=== PATIENT | female | born 1930 | race Caucasian/White ===

== ENCOUNTER 2016-10-11 15:41 | Emergency (ER) | payer MEDICARE, OTHER ==
[~2016-10-11 15:41] MED LIST: ACETAMINOPHEN650 MG PR; AGGRENOX CAP1 BOTTLE; ALEVE220 M2 PO; ALEVE220 M4 PO; ALEVE220 MG; ALEVE220 MG PO; ASPIRIN EC325 M1 PO; ASPIRIN ENTERI325 MG; ASPIRIN325 M3 PO; BACTRIM DS TAB1 EAC2 PO; BAYER ASPIRIN325 M1 PO; BAYER ASPIRIN325 MG PO; BENTYL10 MG PO; BISCOLAX10 MG PR; CALCI-CHEW500 MG PO; CARAFATE1 GM/10 M1 PO; COLACE100 M1 PO; COMPAZINE10 M PO; ECOTRIN500 MG; ERY-TAB333 MG; HYOSCYAMINE0.125 MG; MILK OF MAGNESIA PO; MULTIVITAMIN W1 EAC1 PO; MULTIVITAMIN1 CAP; MULTIVITAMIN1 TAB PO; MULTIVITAMINS1 EAC6 PO; NAPROXEN250 MG; NEXIUM40 MG; NORCO 5/3251 TA1 PO; NORCO 5/3251 TA2 PO; NORVASC5 M1 PO; NORVASC5 M2 PO; NORVASC5 MG PO; OMEPRAZOLE20 M4 PO; PANTOPRAZOLE SO40 M3 PO; PRILOSEC20 M1 PO; PRILOSEC20 MG PO; PROTONIX40 M2 PO; RESTORIL15 MG PO; SENNA PLUS TAB1 EAC1 PO; SENNA S TABLET1 EACH PO; SULAR; SULAR PO; TEMAZEPAM15 MG; TYLENOL EXTRA500 M1 PO; TYLENOL325 M2 PO; VICODIN 5/500 T1 TAB; VICODIN 5/500 T1 TAB PO; ZOFRAN ODT4 MG/UDTAB PO; ZOFRAN4 MG PO
[2016-10-11] MEDS ORDERED: FEOSOL325 M1 PO (15:47)
[2016-10-11] MEDS ORDERED: OMEPRAZOLE20 M3 PO (15:48)
[2016-10-11 16:34] LABS: INR 1.1 INR (0.9-1.1); PROTHROMBIN TIME 12.2 SECONDS (9.0-13.6)
[2016-10-11 16:42] LABS: ANION GAP 12 mmol/L (0-20); BASO % 0.5 % (0-2); BLOOD UREA NITROGEN 15 mg/dl (6-24); CALCIUM 8.2 mg/dl (8.5-10.5); CARBON DIOXIDE-VENOUS 24 mmol/L (22-32); CHLORIDE 107 mmol/l (96-110); CREATININE 0.81 mg/dl (0.50-1.10); EOS % 0.9 % (0-7); GLUCOSE 125 mg/dL (70-110); HCT-HEMATOCRIT 24.9 % (34.0-49.0); HGB-HEMOGLOBIN 7.3 gm/dl (12.0-15.5); IMMATURE GRANULOCYTES ABSOLUTE 0.01 tho/cmm (0-0.03); IMMATURE GRANULOCYTES PERCENT 0.2 % (0-0.3); LYMPH % 20.9 % (20-45); LYMPH ABSOLUTE COUNT 0.9 tho/cmm (0.8-4.5); MCH (MEAN CORPUSCULAR HGB) 20.1 pg (28.0-32.0); MCHC MEAN CORPUSCULAR HGB CONC 29.3 % (32.0-36.0); MCV (MEAN CELL VOLUME) 68.6 fl (82.0-96.0); MEAN PLATELET VOLUME 9.4 cmc (9.4-12.4); MONO % 9.7 % (0-12); MONOCYTE ABSOLUTE COUNT 0.4 tho/cmm (0.0-1.2); NEUTROPHIL ABSOLUTE COUNT 2.9 tho/cmm (1.6-8.0); NEUTROPHIL-AUTOMATED 2.9 tho/cmm (1.6-8.0); NEUTROPHILS % 67.8 % (40-80); POTASSIUM 3.8 mmol/L (3.7-5.1); RED BLOOD COUNT 3.63 mil/cmm (4.00-5.20); RED CELL DISTRIBUTION WIDTH 21.5 % (12.4-16.4); SODIUM 139 mmol/L (135-145); WHITE BLOOD COUNT 4.2 tho/cmm (4.0-10.0); eGFR VALUE FOR BLACK 76 mL/Min
[2016-10-11 17:32] LABS: URINE BILIRUBIN NEGATIVE (NEG); URINE BLOOD NEGATIVE (NEG); URINE GLUCOSE (UA) NEGATIVE (NEG); URINE KETONE NEGATIVE (NEG); URINE LEUKOCYTE ESTERASE POSITIVE (NEG); URINE NITRITE NEGATIVE (NEG); URINE PH 6.5 (5.0-8.0); URINE PROTEIN NEGATIVE (NEG)
[2016-10-11 17:44] LABS: URINE APPEARANCE CLEAR; URINE COLOR YELLOW; URINE EPITHELIAL CELLS 0 /[HPF] (0-10)
[2016-10-11 17:51] LABS: IRON 13 ug/dl (37-170); IRON BINDING CAPACITY 427 ug/dl (250-450)
[2016-11-18] MEDS ORDERED: PROTONIX40 M2 PO (11:30)
[2016-11-18] MEDS ORDERED: CARAFATE1 G2 PO (11:31)
[2017-01-31] MEDS ORDERED: ASPIRIN81 M1 PO (11:13)
== END 2016-10-11 18:10 ==
LOC: EDMED 15:41
PROVIDERS: Emergency Medicine
DX: D64.9 Anemia, unspecified (principal); R20.2 Paresthesia of skin; R53.1 Weakness; R19.7 Diarrhea, unspecified; I10 Essential (primary) hypertension; Z86.711 Personal history of pulmonary embolism; Z79.899 Other long term (current) drug therapy
CPT/HCPCS: J7030

== ENCOUNTER 2016-10-15 10:47 | Emergency (ER) | payer MEDICARE, OTHER ==
[~2016-10-15 10:47] MED LIST changes: +FEOSOL325 M1 PO; +OMEPRAZOLE20 M3 PO
[2016-10-15 12:17] LABS: BASO % 0.2 % (0-2); EOS % 0.4 % (0-7); HCT-HEMATOCRIT 29.1 % (34.0-49.0); HGB-HEMOGLOBIN 8.6 gm/dl (12.0-15.5); IMMATURE GRANULOCYTES ABSOLUTE 0.01 tho/cmm (0-0.03); IMMATURE GRANULOCYTES PERCENT 0.2 % (0-0.3); LYMPH % 17.7 % (20-45); MCH (MEAN CORPUSCULAR HGB) 20.5 pg (28.0-32.0); MCHC MEAN CORPUSCULAR HGB CONC 29.6 % (32.0-36.0); MCV (MEAN CELL VOLUME) 69.5 fl (82.0-96.0); MONO % 6.1 % (0-12); MONOCYTE ABSOLUTE COUNT 0.4 tho/cmm (0.0-1.2); NEUTROPHIL ABSOLUTE COUNT 4.3 tho/cmm (1.6-8.0); NEUTROPHIL-AUTOMATED 4.3 tho/cmm (1.6-8.0); NEUTROPHILS % 75.4 % (40-80); PLATELET COUNT 258 tho/cmm (150-450); RED BLOOD COUNT 4.19 mil/cmm (4.00-5.20); RED CELL DISTRIBUTION WIDTH 22.7 % (12.4-16.4); WHITE BLOOD COUNT 5.7 tho/cmm (4.0-10.0)
[2016-10-15 12:31] LABS: ALKALINE PHOSPHATASE 74 U/L (33-138); ALT/SGPT 19 U/L (12-78); ANION GAP 13 mmol/L (0-20); AST/SGOT 20 U/L (10-40); BILIRUBIN,TOTAL 0.3 mg/dl (0-1.5); BLOOD UREA NITROGEN 14 mg/dl (6-24); CALCIUM 8.6 mg/dl (8.5-10.5); CARBON DIOXIDE-VENOUS 26 mmol/L (22-32); CHLORIDE 105 mmol/l (96-110); CREATININE 0.66 mg/dl (0.50-1.10); GLUCOSE 102 mg/dL (70-110); POTASSIUM 3.8 mmol/L (3.7-5.1); SODIUM 140 mmol/L (135-145); eGFR VALUE FOR BLACK >90 mL/Min
[2016-10-15 14:30] LABS: URINE BILIRUBIN NEGATIVE (NEG); URINE BLOOD NEGATIVE (NEG); URINE GLUCOSE (UA) NEGATIVE (NEG); URINE KETONE NEGATIVE (NEG); URINE LEUKOCYTE ESTERASE NEGATIVE (NEG); URINE NITRITE NEGATIVE (NEG); URINE PROTEIN NEGATIVE (NEG)
[2016-10-15 14:31] LABS: URINE APPEARANCE CLEAR; URINE COLOR YELLOW
[2016-11-18] MEDS ORDERED: PROTONIX40 M2 PO (11:30)
[2016-11-18] MEDS ORDERED: CARAFATE1 G2 PO (11:31)
[2017-01-31] MEDS ORDERED: ASPIRIN81 M1 PO (11:13)
== END 2016-10-15 16:52 ==
LOC: EDMED 10:47
PROVIDERS: Nurse Practitioner Family
DX: J02.9 Acute pharyngitis, unspecified (principal); R52 Pain, unspecified; R10.9 Unspecified abdominal pain; R35.0 Frequency of micturition; R51 Headache; I10 Essential (primary) hypertension
CPT/HCPCS: G8978-GP-CJ; G8979-GP-CJ; G8980-GP-CJ

== ENCOUNTER 2016-10-20 16:06 | Emergency (ER) | payer MEDICARE, OTHER ==
[2016-10-20 16:57] LABS: BASO % 0.2 % (0-2); EOS % 0.6 % (0-7); HCT-HEMATOCRIT 27.4 % (34.0-49.0); HGB-HEMOGLOBIN 7.9 gm/dl (12.0-15.5); IMMATURE GRANULOCYTES ABSOLUTE 0.01 tho/cmm (0-0.03); IMMATURE GRANULOCYTES PERCENT 0.2 % (0-0.3); LYMPH % 21.8 % (20-45); MCHC MEAN CORPUSCULAR HGB CONC 28.8 % (32.0-36.0); MCV (MEAN CELL VOLUME) 69.4 fl (82.0-96.0); MONO % 7.1 % (0-12); MONOCYTE ABSOLUTE COUNT 0.3 tho/cmm (0.0-1.2); NEUTROPHIL ABSOLUTE COUNT 3.2 tho/cmm (1.6-8.0); NEUTROPHIL-AUTOMATED 3.2 tho/cmm (1.6-8.0); NEUTROPHILS % 70.1 % (40-80); PLATELET COUNT 223 tho/cmm (150-450); RED BLOOD COUNT 3.95 mil/cmm (4.00-5.20); RED CELL DISTRIBUTION WIDTH 21.4 % (12.4-16.4); WHITE BLOOD COUNT 4.6 tho/cmm (4.0-10.0)
[2016-10-20 17:03] LABS: PROTHROMBIN TIME 12.1 SECONDS (9.0-13.6)
[2016-10-20 17:16] LABS: ALBUMIN 3.7 g/dl (3.5-5.0); ALCOHOL (ETOH) <10 mg/dl (<10); ALKALINE PHOSPHATASE 72 U/L (33-138); ALT/SGPT 20 U/L (12-78); ANION GAP 10 mmol/L (0-20); AST/SGOT 22 U/L (10-40); BILIRUBIN,TOTAL 0.2 mg/dl (0-1.5); BLOOD UREA NITROGEN 17 mg/dl (6-24); CALCIUM 8.4 mg/dl (8.5-10.5); CARBON DIOXIDE-VENOUS 26 mmol/L (22-32); CHLORIDE 108 mmol/l (96-110); GLUCOSE 107 mg/dL (70-110); POTASSIUM 3.9 mmol/L (3.7-5.1); SODIUM 140 mmol/L (135-145); eGFR VALUE FOR BLACK >90 mL/Min
[2016-10-20 17:20] LABS: TSH-THYROID STIMULATING HORM. 1.11 uIU/ml (0.40-3.80)
[2016-11-18] MEDS ORDERED: PROTONIX40 M2 PO (11:30)
[2016-11-18] MEDS ORDERED: CARAFATE1 G2 PO (11:31)
[2017-01-31] MEDS ORDERED: ASPIRIN81 M1 PO (11:13)
== END 2016-10-20 19:12 ==
LOC: EDMED 16:06
PROVIDERS: Emergency Medicine
DX: R20.0 Anesthesia of skin (principal); I10 Essential (primary) hypertension; Z86.73 Personal history of transient ischemic attack (TIA), and cerebral infarction without residual deficits; K21.9 Gastro-esophageal reflux disease without esophagitis; Z90.710 Acquired absence of both cervix and uterus; Z90.49 Acquired absence of other specified parts of digestive tract; Z90.89 Acquired absence of other organs; Z79.899 Other long term (current) drug therapy
CPT/HCPCS: G0480

== ENCOUNTER 2016-11-10 07:29 | Inpatient (IN) | payer MEDICARE, OTHER ==
[2016-11-10 08:10] LABS: BASO % 0.1 % (0-2); HCT-HEMATOCRIT 27.5 % (34.0-49.0); IMMATURE GRANULOCYTES ABSOLUTE 0.02 tho/cmm (0-0.03); IMMATURE GRANULOCYTES PERCENT 0.3 % (0-0.3); LYMPH % 7.3 % (20-45); LYMPH ABSOLUTE COUNT 0.6 tho/cmm (0.8-4.5); MCH (MEAN CORPUSCULAR HGB) 20.9 pg (28.0-32.0); MCHC MEAN CORPUSCULAR HGB CONC 29.1 % (32.0-36.0); MEAN PLATELET VOLUME 9.1 cmc (9.4-12.4); MONO % 3.9 % (0-12); MONOCYTE ABSOLUTE COUNT 0.3 tho/cmm (0.0-1.2); NEUTROPHILS % 88.4 % (40-80); PLATELET COUNT 240 tho/cmm (150-450); RED BLOOD COUNT 3.82 mil/cmm (4.00-5.20); WHITE BLOOD COUNT 7.9 tho/cmm (4.0-10.0)
[2016-11-10 08:12] LABS: RED CELL DISTRIBUTION WIDTH 25.6 % (12.4-16.4)
[2016-11-10 08:15] LABS: INR 1.1 INR (0.9-1.1); PROTHROMBIN TIME 12.7 SECONDS (9.0-13.6)
[2016-11-10 08:23] LABS: ALBUMIN 3.5 g/dl (3.5-5.0); ALKALINE PHOSPHATASE 67 U/L (33-138); ALT/SGPT 22 U/L (12-78); ANION GAP 14 mmol/L (0-20); AST/SGOT 17 U/L (10-40); BILIRUBIN,TOTAL 0.4 mg/dl (0-1.5); BLOOD UREA NITROGEN 41 mg/dl (6-24); CALCIUM 8.2 mg/dl (8.5-10.5); CARBON DIOXIDE-VENOUS 24 mmol/L (22-32); CHLORIDE 107 mmol/l (96-110); GLUCOSE 155 mg/dL (70-110); LIPASE 203 U/L (73-393); POTASSIUM 3.8 mmol/L (3.7-5.1); SODIUM 141 mmol/L (135-145); eGFR VALUE FOR BLACK >90 mL/Min
[2016-11-10] MEDS ORDERED: ASPIRIN EC81 MG PO (09:00)
[2016-11-10 09:42] LABS: URINE APPEARANCE HAZY; URINE BILIRUBIN NEGATIVE (NEG); URINE BLOOD SMALL (NEG); URINE COLOR PALE YELLOW; URINE GLUCOSE (UA) NEGATIVE (NEG); URINE KETONE NEGATIVE (NEG); URINE LEUKOCYTE ESTERASE POSITIVE (NEG); URINE NITRITE NEGATIVE (NEG); URINE PROTEIN SMALL (NEG)
[2016-11-10 09:51] LABS: URINE WBC 100-150 /[HPF] (0-5)
[2016-11-10 09:53] LABS: URINE MUCUS 1+
[2016-11-10 12:33] LABS: HGB-HEMOGLOBIN 6.8 gm/dl (12.0-15.5); LYMPH ABSOLUTE COUNT 0.6 tho/cmm (0.8-4.5); MCH (MEAN CORPUSCULAR HGB) 21.2 pg (28.0-32.0); MEAN PLATELET VOLUME 9.1 cmc (9.4-12.4); MONO % 3.1 % (0-12); MONOCYTE ABSOLUTE COUNT 0.2 tho/cmm (0.0-1.2); NEUTROPHIL ABSOLUTE COUNT 4.5 tho/cmm (1.6-8.0); NEUTROPHIL-AUTOMATED 4.5 tho/cmm (1.6-8.0); NEUTROPHILS % 84.9 % (40-80); PLATELET COUNT 212 tho/cmm (150-450); RED BLOOD COUNT 3.21 mil/cmm (4.00-5.20); WHITE BLOOD COUNT 5.2 tho/cmm (4.0-10.0)
[2016-11-10 12:34] LABS: HCT-HEMATOCRIT 23.1 % (34.0-49.0); MCHC MEAN CORPUSCULAR HGB CONC 29.4 % (32.0-36.0); RED CELL DISTRIBUTION WIDTH 25.5 % (12.4-16.4)
[2016-11-10 21:11] LABS: RED CELL DISTRIBUTION WIDTH 24.5 % (12.4-16.4)
[2016-11-10 21:12] LABS: HCT-HEMATOCRIT 29.5 % (34.0-49.0); HGB-HEMOGLOBIN 9.1 gm/dl (12.0-15.5)
[2016-11-11 05:38] LABS: HCT-HEMATOCRIT 29.5 % (34.0-49.0); HGB-HEMOGLOBIN 9.2 gm/dl (12.0-15.5); MCV (MEAN CELL VOLUME) 75.4 fl (82.0-96.0); RED CELL DISTRIBUTION WIDTH 24.6 % (12.4-16.4)
[2016-11-11 12:52] LABS: HCT-HEMATOCRIT 29.6 % (34.0-49.0); HGB-HEMOGLOBIN 9.1 gm/dl (12.0-15.5); MCV (MEAN CELL VOLUME) 76.5 fl (82.0-96.0); RED CELL DISTRIBUTION WIDTH 24.6 % (12.4-16.4)
[2016-11-11 21:08] LABS: HCT-HEMATOCRIT 33.9 % (34.0-49.0); HGB-HEMOGLOBIN 10.4 gm/dl (12.0-15.5); MCV (MEAN CELL VOLUME) 75.7 fl (82.0-96.0); RED CELL DISTRIBUTION WIDTH 24.5 % (12.4-16.4)
[2016-11-12 06:05] LABS: HCT-HEMATOCRIT 32.6 % (34.0-49.0); HGB-HEMOGLOBIN 10.1 gm/dl (12.0-15.5); MCV (MEAN CELL VOLUME) 74.9 fl (82.0-96.0); RED CELL DISTRIBUTION WIDTH 24.8 % (12.4-16.4)
[2016-11-12] MEDS ORDERED: PROTONIX40 M2 PO (13:29)
[2016-11-12 13:40] LABS: HCT-HEMATOCRIT 32.6 % (34.0-49.0); HGB-HEMOGLOBIN 10.2 gm/dl (12.0-15.5); MCV (MEAN CELL VOLUME) 75.5 fl (82.0-96.0)
[2016-11-12 13:46] LABS: RED CELL DISTRIBUTION WIDTH 25.2 % (12.4-16.4)
[2016-11-18] MEDS ORDERED: PROTONIX40 M2 PO (11:30)
[2016-11-18] MEDS ORDERED: CARAFATE1 G2 PO (11:31)
[2017-01-31] MEDS ORDERED: ASPIRIN81 M1 PO (11:13)
== END 2016-11-12 16:15 | DRG 378 ==
LOC: EDMED 07:29 → EMR2 10:11 → 5WF 11:16
PROVIDERS: Emergency Medicine; Family Medicine; Internal Medicine Gastroenterology; ADMIT Family Medicine
PROC: 0DJ08ZZ Inspection of Upper Intestinal Tract, Via Natural or Artificial Opening Endoscopic (ICD-10-PCS; principal; 2016-11-11)
PROC: 05HC33Z Insertion of Infusion Device into Left Basilic Vein, Percutaneous Approach (ICD-10-PCS; principal; 2016-11-11)
PROC: B54NZZA Ultrasonography of Left Upper Extremity Veins, Guidance (ICD-10-PCS; principal; 2016-11-11)
PROC: 0DJD8ZZ Inspection of Lower Intestinal Tract, Via Natural or Artificial Opening Endoscopic (ICD-10-PCS; 2016-11-12)
DX: K92.0 Hematemesis (principal); D62 Acute posthemorrhagic anemia; K92.1 Melena; I10 Essential (primary) hypertension; K21.9 Gastro-esophageal reflux disease without esophagitis; M19.90 Unspecified osteoarthritis, unspecified site; Z86.73 Personal history of transient ischemic attack (TIA), and cerebral infarction without residual deficits
CPT/HCPCS: C1751; C9113; G0500; J2250; J2405; J3010; J7030; P9016

== ENCOUNTER 2016-11-27 08:04 | Emergency (ER) | payer MEDICARE, OTHER ==
[~2016-11-27 08:04] MED LIST changes: +ASPIRIN EC81 MG PO; +CARAFATE1 G2 PO
[2016-11-27 08:41] LABS: BASO % 0.4 % (0-2); EOS % 1.1 % (0-7); EOSINOPHIL ABSOLUTE COUNT 0.1 tho/cmm (0.0-0.7); HCT-HEMATOCRIT 33.7 % (34.0-49.0); HGB-HEMOGLOBIN 10.4 gm/dl (12.0-15.5); LYMPH % 16.6 % (20-45); LYMPH ABSOLUTE COUNT 0.8 tho/cmm (0.8-4.5); MCH (MEAN CORPUSCULAR HGB) 24.9 pg (28.0-32.0); MCHC MEAN CORPUSCULAR HGB CONC 30.9 % (32.0-36.0); MCV (MEAN CELL VOLUME) 80.8 fl (82.0-96.0); MEAN PLATELET VOLUME 9.9 cmc (9.4-12.4); MONOCYTE ABSOLUTE COUNT 0.3 tho/cmm (0.0-1.2); NEUTROPHIL ABSOLUTE COUNT 3.4 tho/cmm (1.6-8.0); NEUTROPHIL-AUTOMATED 3.4 tho/cmm (1.6-8.0); NEUTROPHILS % 74.9 % (40-80); PLATELET COUNT 207 tho/cmm (150-450); RED BLOOD COUNT 4.17 mil/cmm (4.00-5.20); WHITE BLOOD COUNT 4.6 tho/cmm (4.0-10.0)
[2016-11-27] MEDS ORDERED: OMEPRAZOLE20 M3 PO (08:43)
[2016-11-27 08:45] LABS: RED CELL DISTRIBUTION WIDTH 25.7 % (12.4-16.4)
[2016-11-27 08:53] LABS: ALB/GLOB RATIO 1.1 (0.8-2.0); ALBUMIN 3.5 g/dl (3.5-5.0); ALKALINE PHOSPHATASE 65 U/L (33-138); ALT/SGPT 18 U/L (12-78); ANION GAP 12 mmol/L (0-20); AST/SGOT 18 U/L (10-40); BILIRUBIN,TOTAL 0.6 mg/dl (0-1.5); BLOOD UREA NITROGEN 10 mg/dl (6-24); CALCIUM 8.4 mg/dl (8.5-10.5); CARBON DIOXIDE-VENOUS 26 mmol/L (22-32); CHLORIDE 108 mmol/l (96-110); CREATININE 0.61 mg/dl (0.50-1.10); GLUCOSE 115 mg/dL (70-110); LIPASE 126 U/L (73-393); POTASSIUM 3.4 mmol/L (3.7-5.1); SODIUM 143 mmol/L (135-145); eGFR VALUE FOR BLACK >90 mL/Min
[2016-11-28] MEDS ORDERED: CARAFATE1 GM/10 M1 PO (17:44)
[2017-01-31] MEDS ORDERED: ASPIRIN81 M1 PO (11:13)
== END 2016-11-27 11:28 ==
LOC: EDMED 08:04
PROVIDERS: Emergency Medicine
DX: K21.0 Gastro-esophageal reflux disease with esophagitis (principal); I10 Essential (primary) hypertension
CPT/HCPCS: J2405

== ENCOUNTER 2016-11-28 14:41 | Observation (INO) | payer MEDICARE, OTHER ==
[2016-11-28 15:14] LABS: BASO % 0.1 % (0-2); EOS % 0.3 % (0-7); HCT-HEMATOCRIT 35.3 % (34.0-49.0); HGB-HEMOGLOBIN 10.7 gm/dl (12.0-15.5); IMMATURE GRANULOCYTES ABSOLUTE 0.02 tho/cmm (0-0.03); IMMATURE GRANULOCYTES PERCENT 0.3 % (0-0.3); LYMPH % 13.5 % (20-45); LYMPH ABSOLUTE COUNT 1.1 tho/cmm (0.8-4.5); MCH (MEAN CORPUSCULAR HGB) 24.4 pg (28.0-32.0); MCHC MEAN CORPUSCULAR HGB CONC 30.3 % (32.0-36.0); MCV (MEAN CELL VOLUME) 80.6 fl (82.0-96.0); MEAN PLATELET VOLUME 9.5 cmc (9.4-12.4); MONO % 6.3 % (0-12); MONOCYTE ABSOLUTE COUNT 0.5 tho/cmm (0.0-1.2); NEUTROPHIL ABSOLUTE COUNT 6.3 tho/cmm (1.6-8.0); NEUTROPHIL-AUTOMATED 6.3 tho/cmm (1.6-8.0); NEUTROPHILS % 79.5 % (40-80); PLATELET COUNT 221 tho/cmm (150-450); RED BLOOD COUNT 4.38 mil/cmm (4.00-5.20)
[2016-11-28 15:15] LABS: RED CELL DISTRIBUTION WIDTH 25.5 % (12.4-16.4)
[2016-11-28 15:31] LABS: ALB/GLOB RATIO 0.9 (0.8-2.0); ALBUMIN 3.4 g/dl (3.5-5.0); ALKALINE PHOSPHATASE 68 U/L (33-138); ALT/SGPT 22 U/L (12-78); ANION GAP 13 mmol/L (0-20); AST/SGOT 37 U/L (10-40); BILIRUBIN,TOTAL 0.4 mg/dl (0-1.5); BLOOD UREA NITROGEN 16 mg/dl (6-24); CALCIUM 8.3 mg/dl (8.5-10.5); CARBON DIOXIDE-VENOUS 26 mmol/L (22-32); CHLORIDE 101 mmol/l (96-110); CREATININE 0.89 mg/dl (0.50-1.10); GLUCOSE 157 mg/dL (70-110); LIPASE 160 U/L (73-393); POTASSIUM 3.9 mmol/L (3.7-5.1); SODIUM 136 mmol/L (135-145); eGFR VALUE FOR BLACK 68 mL/Min
[2016-11-28] MEDS ORDERED: CARAFATE1 GM/10 M1 PO (17:44)
[2017-01-31] MEDS ORDERED: ASPIRIN81 M1 PO (11:13)
== END 2016-11-29 14:30 ==
LOC: EDMED 14:41 → EMR2 20:16 → CAR1 21:08
PROVIDERS: Emergency Medicine; ADMIT Internal Medicine
DX: R07.9 Chest pain, unspecified (principal); K92.1 Melena; I10 Essential (primary) hypertension; M19.90 Unspecified osteoarthritis, unspecified site; H40.9 Unspecified glaucoma; H35.30 Unspecified macular degeneration; F41.9 Anxiety disorder, unspecified; Z79.899 Other long term (current) drug therapy; Z88.1 Allergy status to other antibiotic agents; Z88.5 Allergy status to narcotic agent; Z88.8 Allergy status to other drugs, medicaments and biological substances; Z90.49 Acquired absence of other specified parts of digestive tract; Z90.710 Acquired absence of both cervix and uterus; Z98.890 Other specified postprocedural states
CPT/HCPCS: C9113; G0378; G8978-GP-CK; G8979-GP-CJ; G8980-GP-CJ; J2405; J7030

== ENCOUNTER 2016-12-20 16:34 | Observation (INO) | payer MEDICARE, OTHER ==
[2016-12-20] MEDS ORDERED: PEPCID20 M1 PO (16:41)
[2016-12-20] MEDS ORDERED: CARAFATE1 GM/10 M1 PO (16:42)
[2016-12-20 17:22] LABS: BASO % 0.2 % (0-2); EOS % 0.6 % (0-7); HGB-HEMOGLOBIN 10.6 gm/dl (12.0-15.5); LYMPH % 21.7 % (20-45); LYMPH ABSOLUTE COUNT 1.1 tho/cmm (0.8-4.5); MCH (MEAN CORPUSCULAR HGB) 25.3 pg (28.0-32.0); MCHC MEAN CORPUSCULAR HGB CONC 31.2 % (32.0-36.0); MCV (MEAN CELL VOLUME) 81.1 fl (82.0-96.0); MEAN PLATELET VOLUME 9.1 cmc (9.4-12.4); MONO % 9.5 % (0-12); MONOCYTE ABSOLUTE COUNT 0.5 tho/cmm (0.0-1.2); NEUTROPHIL ABSOLUTE COUNT 3.4 tho/cmm (1.6-8.0); NEUTROPHIL-AUTOMATED 3.4 tho/cmm (1.6-8.0); PLATELET COUNT 219 tho/cmm (150-450); RED BLOOD COUNT 4.19 mil/cmm (4.00-5.20); RED CELL DISTRIBUTION WIDTH 21.6 % (12.4-16.4); WHITE BLOOD COUNT 5.1 tho/cmm (4.0-10.0)
[2016-12-20 17:36] LABS: ALB/GLOB RATIO 0.8 (0.8-2.0); ALBUMIN 2.9 g/dl (3.5-5.0); ALKALINE PHOSPHATASE 71 U/L (33-138); ALT/SGPT 23 U/L (12-78); ANION GAP 14 mmol/L (0-20); AST/SGOT 22 U/L (10-40); BILIRUBIN,TOTAL 0.3 mg/dl (0-1.5); BLOOD UREA NITROGEN 18 mg/dl (6-24); CARBON DIOXIDE-VENOUS 25 mmol/L (22-32); CHLORIDE 105 mmol/l (96-110); CREATININE 0.61 mg/dl (0.50-1.10); GLUCOSE 118 mg/dL (70-110); LIPASE 194 U/L (73-393); POTASSIUM 4.4 mmol/L (3.7-5.1); SODIUM 140 mmol/L (135-145); eGFR VALUE FOR BLACK >90 mL/Min
[2016-12-20 20:05] LABS: URINE APPEARANCE HAZY; URINE BILIRUBIN NEGATIVE (NEG); URINE BLOOD SMALL (NEG); URINE COLOR YELLOW; URINE GLUCOSE (UA) NEGATIVE (NEG); URINE KETONE NEGATIVE (NEG); URINE LEUKOCYTE ESTERASE POSITIVE (NEG); URINE NITRITE NEGATIVE (NEG); URINE PROTEIN NEGATIVE (NEG)
[2016-12-20 20:18] LABS: URINE BACTERIA 1+; URINE WBC 20-30 /[HPF] (0-5)
[2016-12-21] MEDS ORDERED: PROTONIX40 M2 PO (13:19)
[2016-12-21] MEDS ORDERED: CARAFATE1 GM/10 M1 PO (13:20)
[2017-01-31] MEDS ORDERED: ASPIRIN81 M1 PO (11:13)
== END 2016-12-21 14:43 ==
LOC: EDMED 16:34 → EMR2 21:58 → CAR1 23:25
PROVIDERS: Emergency Medicine; ADMIT Hospitalist
PROC: 05HA33Z Insertion of Infusion Device into Left Brachial Vein, Percutaneous Approach (ICD-10-PCS; principal; 2016-12-20)
DX: K20.9 Esophagitis, unspecified (principal); R07.9 Chest pain, unspecified; R82.71 Bacteriuria; Z91.14 Patient's other noncompliance with medication regimen; M19.90 Unspecified osteoarthritis, unspecified site; H35.30 Unspecified macular degeneration; I10 Essential (primary) hypertension; D64.9 Anemia, unspecified; N39.0 Urinary tract infection, site not specified; Z79.899 Other long term (current) drug therapy; Z88.1 Allergy status to other antibiotic agents; Z88.5 Allergy status to narcotic agent; Z88.8 Allergy status to other drugs, medicaments and biological substances; Z86.73 Personal history of transient ischemic attack (TIA), and cerebral infarction without residual deficits; Z90.49 Acquired absence of other specified parts of digestive tract; Z90.710 Acquired absence of both cervix and uterus; Z98.890 Other specified postprocedural states
CPT/HCPCS: A9540; A9558; C1751; C9113; G0378; J2405; J7030

== ENCOUNTER 2016-12-25 12:18 | Emergency (ER) | payer MEDICARE, OTHER ==
[~2016-12-25 12:18] MED LIST changes: +PEPCID20 M1 PO
[2016-12-25] MEDS ORDERED: CENTRAVITES 501 EACH PO (13:02)
[2016-12-25] MEDS ORDERED: TYLENOL EXTRA500 M1 PO (13:02)
[2016-12-25] MEDS ORDERED: PEPCID20 M1 PO (13:03)
[2016-12-25 13:45] LABS: BASO % 0.1 % (0-2); EOS % 0.1 % (0-7); HCT-HEMATOCRIT 32.1 % (34.0-49.0); IMMATURE GRANULOCYTES ABSOLUTE 0.01 tho/cmm (0-0.03); IMMATURE GRANULOCYTES PERCENT 0.1 % (0-0.3); LYMPH ABSOLUTE COUNT 0.8 tho/cmm (0.8-4.5); MCH (MEAN CORPUSCULAR HGB) 24.9 pg (28.0-32.0); MCHC MEAN CORPUSCULAR HGB CONC 31.2 % (32.0-36.0); MCV (MEAN CELL VOLUME) 79.9 fl (82.0-96.0); MEAN PLATELET VOLUME 8.7 cmc (9.4-12.4); MONO % 4.6 % (0-12); MONOCYTE ABSOLUTE COUNT 0.4 tho/cmm (0.0-1.2); NEUTROPHIL ABSOLUTE COUNT 6.8 tho/cmm (1.6-8.0); NEUTROPHIL-AUTOMATED 6.8 tho/cmm (1.6-8.0); NEUTROPHILS % 85.1 % (40-80); PLATELET COUNT 238 tho/cmm (150-450); RED BLOOD COUNT 4.02 mil/cmm (4.00-5.20); RED CELL DISTRIBUTION WIDTH 20.3 % (12.4-16.4)
[2016-12-25 13:51] LABS: INR 1.1 INR (0.9-1.1); PROTHROMBIN TIME 12.4 SECONDS (9.0-13.6)
[2016-12-25 13:58] LABS: ANION GAP 12 mmol/L (0-20); BLOOD UREA NITROGEN 14 mg/dl (6-24); CALCIUM 8.2 mg/dl (8.5-10.5); CARBON DIOXIDE-VENOUS 24 mmol/L (22-32); CHLORIDE 109 mmol/l (96-110); CREATININE 0.55 mg/dl (0.50-1.10); GLUCOSE 114 mg/dL (70-110); POTASSIUM 3.5 mmol/L (3.7-5.1); SODIUM 141 mmol/L (135-145); eGFR VALUE FOR BLACK >90 mL/Min
[2017-01-31] MEDS ORDERED: ASPIRIN81 M1 PO (11:13)
== END 2016-12-25 14:30 ==
LOC: EDMED 12:18
PROVIDERS: Emergency Medicine
DX: K62.5 Hemorrhage of anus and rectum (principal); Z87.19 Personal history of other diseases of the digestive system; I10 Essential (primary) hypertension; K21.9 Gastro-esophageal reflux disease without esophagitis; Z86.73 Personal history of transient ischemic attack (TIA), and cerebral infarction without residual deficits; Z90.710 Acquired absence of both cervix and uterus; Z90.49 Acquired absence of other specified parts of digestive tract; Z79.899 Other long term (current) drug therapy

== ENCOUNTER 2017-01-07 17:13 | Emergency (ER) | payer MEDICARE, OTHER ==
[~2017-01-07 17:13] MED LIST changes: +CENTRAVITES 501 EACH PO
[2017-01-07] MEDS ORDERED: BLOOD PRESSURE MED (17:21)
[2017-01-07 18:26] LABS: BASO % 0.2 % (0-2); EOS % 0.6 % (0-7); HCT-HEMATOCRIT 32.1 % (34.0-49.0); HGB-HEMOGLOBIN 9.7 gm/dl (12.0-15.5); LYMPH % 16.9 % (20-45); LYMPH ABSOLUTE COUNT 0.9 tho/cmm (0.8-4.5); MCH (MEAN CORPUSCULAR HGB) 24.3 pg (28.0-32.0); MCHC MEAN CORPUSCULAR HGB CONC 30.2 % (32.0-36.0); MCV (MEAN CELL VOLUME) 80.3 fl (82.0-96.0); MONO % 7.7 % (0-12); MONOCYTE ABSOLUTE COUNT 0.4 tho/cmm (0.0-1.2); NEUTROPHIL ABSOLUTE COUNT 3.8 tho/cmm (1.6-8.0); NEUTROPHIL-AUTOMATED 3.8 tho/cmm (1.6-8.0); NEUTROPHILS % 74.6 % (40-80); PLATELET COUNT 275 tho/cmm (150-450); RED CELL DISTRIBUTION WIDTH 18.6 % (12.4-16.4); WHITE BLOOD COUNT 5.1 tho/cmm (4.0-10.0)
[2017-01-07 18:39] LABS: ANION GAP 13 mmol/L (0-20); BLOOD UREA NITROGEN 13 mg/dl (6-24); CALCIUM 8.1 mg/dl (8.5-10.5); CARBON DIOXIDE-VENOUS 23 mmol/L (22-32); CHLORIDE 106 mmol/l (96-110); CREATININE 0.55 mg/dl (0.50-1.10); GLUCOSE 106 mg/dL (70-110); POTASSIUM 3.8 mmol/L (3.7-5.1); SODIUM 138 mmol/L (135-145); eGFR VALUE FOR BLACK >90 mL/Min
[2017-01-07 19:08] LABS: URINE APPEARANCE CLEAR; URINE BILIRUBIN NEGATIVE (NEG); URINE BLOOD MODERATE (NEG); URINE COLOR YELLOW; URINE GLUCOSE (UA) NEGATIVE (NEG); URINE KETONE NEGATIVE (NEG); URINE LEUKOCYTE ESTERASE POSITIVE (NEG); URINE NITRITE NEGATIVE (NEG); URINE PROTEIN MODERATE (NEG); URINE SPECIFIC GRAVITY 1.005 (1.003-1.030)
[2017-01-07 19:09] LABS: URINE EPITHELIAL CELLS RARE /[HPF] (0-10)
[2017-01-07] MEDS ORDERED: ZOFRAN ODT4 MG PO (20:07)
[2017-01-07] MEDS ORDERED: PROTONIX40 M2 PO (20:07)
[2017-01-31] MEDS ORDERED: ASPIRIN81 M1 PO (11:13)
== END 2017-01-07 20:24 ==
LOC: EDMED 17:13
PROVIDERS: Emergency Medicine
DX: K20.9 Esophagitis, unspecified (principal); D64.9 Anemia, unspecified; Z86.73 Personal history of transient ischemic attack (TIA), and cerebral infarction without residual deficits; Z90.49 Acquired absence of other specified parts of digestive tract; Z79.899 Other long term (current) drug therapy
CPT/HCPCS: C9113; J2270; J2405

== ENCOUNTER 2017-01-21 00:46 | Inpatient (IN) | payer MEDICARE, OTHER ==
[~2017-01-21 00:46] MED LIST changes: +BLOOD PRESSURE MED; +ZOFRAN ODT4 MG PO
[2017-01-21 01:37] LABS: BASO % 0.2 % (0-2); EOS % 0.5 % (0-7); HCT-HEMATOCRIT 30.2 % (34.0-49.0); HGB-HEMOGLOBIN 9.4 gm/dl (12.0-15.5); IMMATURE GRANULOCYTES ABSOLUTE 0.02 tho/cmm (0-0.03); IMMATURE GRANULOCYTES PERCENT 0.3 % (0-0.3); LYMPH % 18.5 % (20-45); LYMPH ABSOLUTE COUNT 1.2 tho/cmm (0.8-4.5); MCH (MEAN CORPUSCULAR HGB) 23.7 pg (28.0-32.0); MCHC MEAN CORPUSCULAR HGB CONC 31.1 % (32.0-36.0); MCV (MEAN CELL VOLUME) 76.1 fl (82.0-96.0); MEAN PLATELET VOLUME 8.4 cmc (9.4-12.4); MONO % 8.2 % (0-12); MONOCYTE ABSOLUTE COUNT 0.5 tho/cmm (0.0-1.2); NEUTROPHIL ABSOLUTE COUNT 4.6 tho/cmm (1.6-8.0); NEUTROPHIL-AUTOMATED 4.6 tho/cmm (1.6-8.0); NEUTROPHILS % 72.3 % (40-80); PLATELET COUNT 255 tho/cmm (150-450); RED BLOOD COUNT 3.97 mil/cmm (4.00-5.20); RED CELL DISTRIBUTION WIDTH 17.4 % (12.4-16.4); WHITE BLOOD COUNT 6.3 tho/cmm (4.0-10.0)
[2017-01-21 01:44] LABS: INR 1.1 INR (0.9-1.1)
[2017-01-21 01:49] LABS: ANION GAP 13 mmol/L (0-20); BLOOD UREA NITROGEN 23 mg/dl (6-24); CALCIUM 7.7 mg/dl (8.5-10.5); CARBON DIOXIDE-VENOUS 24 mmol/L (22-32); CHLORIDE 103 mmol/l (96-110); CREATININE 0.71 mg/dl (0.50-1.10); GLUCOSE 120 mg/dL (70-110); POTASSIUM 3.5 mmol/L (3.7-5.1); SODIUM 136 mmol/L (135-145); eGFR VALUE FOR BLACK 89 mL/Min
[2017-01-21] MEDS ORDERED: NORVASC5 M2 PO (02:11)
[2017-01-21] MEDS ORDERED: PROTONIX40 M2 PO (02:11)
[2017-01-21 17:21] LABS: URINE BILIRUBIN NEGATIVE (NEG); URINE BLOOD NEGATIVE (NEG); URINE GLUCOSE (UA) NEGATIVE (NEG); URINE KETONE SMALL (NEG); URINE LEUKOCYTE ESTERASE POSITIVE (NEG); URINE NITRITE NEGATIVE (NEG); URINE PROTEIN NEGATIVE (NEG); URINE SPECIFIC GRAVITY 1.005 (1.003-1.030)
[2017-01-21 17:22] LABS: URINE APPEARANCE HAZY; URINE COLOR PALE YELLOW
[2017-01-21 17:28] LABS: URINE EPITHELIAL CELLS RARE /[HPF] (0-10); URINE RBC 0 /[HPF] (0-5); URINE WBC RARE /[HPF] (0-5)
[2017-01-22 06:55] LABS: BASO % 0.6 % (0-2); EOS % 3.8 % (0-7); EOSINOPHIL ABSOLUTE COUNT 0.1 tho/cmm (0.0-0.7); HCT-HEMATOCRIT 26.9 % (34.0-49.0); HGB-HEMOGLOBIN 8.3 gm/dl (12.0-15.5); LYMPH % 24.8 % (20-45); LYMPH ABSOLUTE COUNT 0.8 tho/cmm (0.8-4.5); MCH (MEAN CORPUSCULAR HGB) 23.6 pg (28.0-32.0); MCHC MEAN CORPUSCULAR HGB CONC 30.9 % (32.0-36.0); MCV (MEAN CELL VOLUME) 76.6 fl (82.0-96.0); MEAN PLATELET VOLUME 8.4 cmc (9.4-12.4); MONO % 12.4 % (0-12); MONOCYTE ABSOLUTE COUNT 0.4 tho/cmm (0.0-1.2); NEUTROPHIL ABSOLUTE COUNT 1.8 tho/cmm (1.6-8.0); NEUTROPHIL-AUTOMATED 1.8 tho/cmm (1.6-8.0); NEUTROPHILS % 58.4 % (40-80); PLATELET COUNT 207 tho/cmm (150-450); RED BLOOD COUNT 3.51 mil/cmm (4.00-5.20); RED CELL DISTRIBUTION WIDTH 17.6 % (12.4-16.4)
[2017-01-22 07:03] LABS: WHITE BLOOD COUNT 3.1 tho/cmm (4.0-10.0)
[2017-01-22 07:12] LABS: ANION GAP 10 mmol/L (0-20); BLOOD UREA NITROGEN 7 mg/dl (6-24); CALCIUM 7.6 mg/dl (8.5-10.5); CARBON DIOXIDE-VENOUS 25 mmol/L (22-32); CHLORIDE 110 mmol/l (96-110); CREATININE 0.52 mg/dl (0.50-1.10); GLUCOSE 94 mg/dL (70-110); POTASSIUM 3.4 mmol/L (3.7-5.1); SODIUM 142 mmol/L (135-145); eGFR VALUE FOR BLACK >90 mL/Min
[2017-01-22] MEDS ORDERED: MIRALAX17 G2 PO (12:01)
[2017-01-22] MEDS ORDERED: SENNA CONCENTR8.6 M1 PO (12:02)
[2017-01-31] MEDS ORDERED: ASPIRIN81 M1 PO (11:13)
== END 2017-01-22 13:55 | disposition home health service (06) | DRG 379 ==
LOC: EDMED 00:46 → EMR2 04:40 → 5WE 06:21
PROVIDERS: Emergency Medicine; Registered Nurse; ADMIT Internal Medicine
DX: K92.2 Gastrointestinal hemorrhage, unspecified (principal); I95.9 Hypotension, unspecified; K29.70 Gastritis, unspecified, without bleeding; F01.50 Vascular dementia, unspecified severity, without behavioral disturbance, psychotic disturbance, mood disturbance, and anxiety; K21.9 Gastro-esophageal reflux disease without esophagitis; I10 Essential (primary) hypertension; D50.9 Iron deficiency anemia, unspecified; K57.90 Diverticulosis of intestine, part unspecified, without perforation or abscess without bleeding; K64.9 Unspecified hemorrhoids; M19.90 Unspecified osteoarthritis, unspecified site; H40.9 Unspecified glaucoma; H35.30 Unspecified macular degeneration; Z86.73 Personal history of transient ischemic attack (TIA), and cerebral infarction without residual deficits; Z79.899 Other long term (current) drug therapy
CPT/HCPCS: C9113; G8978-GP-CJ; G8979-GP-CI; G8980-GP-CJ; G8987-GO-CJ; G8988-GO-CI; G8989-GO-CJ; J2405; J7030